=== PATIENT | male | born 1955 | race Caucasian/White ===

== ENCOUNTER 2020-07-24 10:15 | Observation (INO) | payer MEDICARE ==
[~2020-07-24] VITALS: Ht 170.2 cm; Wt 60.3 kg
[~2020-07-24 10:15] MED LIST: AMLODIPINE BESYL5 MG PO; ASPIR 8181 MG PO; ASPIRIN81 MG PO; BABY ASPIRIN81 MG PO; BUTALBITAL-ASA1 EACH PO; CLINDAMYCIN HC300 MG PO; CORDARONE200 MG PO; COUMADIN2 MG PO; COUMADIN2.5 MG PO; COUMADIN4 MG PO; COZAAR25 MG PO; DIAZEPAM10 MG PO; DIGOXIN125 MCG PO; DUONEB 0.5 MG-33 ML INH; ESGIC PLUS CAP1 EACH PO; HYDROCODON-ACE1 EACH PO; HYDROCODONE; JANTOVEN3 MG PO; LASIX20 MG PO; LEVAQUIN750 MG PO; LOSARTAN POTAS100 MG PO; LOSARTAN POTASS50 MG PO; METOPROLOL SUCC25 MG PO; METOPROLOL TART25 MG PO; MIRALAX17 GM PO; MUCOMYST NEB; MULTIVITAMIN PO; NEXIUM40 MG PO; NITROGLYCERIN0.4 MG SL; NORCO 5-325 TA1 EACH PO; NORCO 7.5-3251 EACH PO; OXYCODONE HCL20 M1 PO; POTASSIUM CHLO10 ME1 PO; RANEXA500 MG PO; RANITIDINE HCL300 MG PO; SEROQUEL100 MG PO; SINGULAIR10 MG PO; SOMA; SOMA350 MG PO; SOTALOL AF80 MG PO; STADOL IH; TEMAZEPAM15 MG PO; TEMAZEPAM30 MG PO; VALIUM; VALIUM10 MG PO; ZANTAC150 MG PO; ZANTAC300 MG PO; ZEBUTAL CAPSUL1 EACH PO; ZOMIG2.5 MG PO; [UNRECOGNIZED DRUG - OTHER]
[2020-07-24 10:39] LABS: HEMOGLOBIN 6.6 g/dL (14.0-18.0)
[2020-07-24 10:44] LABS: INR 1.4; PROTHROMBIN TIME 17.9 seconds (11.9-14.5)
[2020-07-24 10:45] LABS: PARTIAL THROMBOPLASTIN TIME 31.8 seconds (23.8-35.5)
[2020-07-24] MEDS ORDERED: SODIUM CHLORIDE 0.9% 250ML 250 ML IV SCH (11:30)
[2020-07-24 12:47] LABS: BASOPHILS % 0.3 % (0.0-1.0); EOSINOPHILS # (AUTO) 0.1 (0.0-0.4); EOSINOPHILS % 0.9 % (0.0-6.0); HEMATOCRIT 21.7 % (38.2-49.6); LYMPHOCYTES # (AUTO) 0.7 (1.0-3.2); LYMPHOCYTES % 8.8 % (18.0-39.1); MEAN CORPUSCULAR HEMOGLOBIN 24.6 pg (28-32); MEAN CORPUSCULAR VOLUME 82.2 fL (81-99); MONOCYTES # (AUTO) 0.6 (0.2-0.8); MONOCYTES % 8.6 % (4.4-11.3); NEUTROPHILS # (AUTO) 6.1 (2.1-6.9); NEUTROPHILS % 80.9 % (38.7-80.0); PLATELET COUNT 224 x10e3/uL (140-360); RED BLOOD COUNT 2.64 x10e6/uL (4.3-5.7); RED CELL DISTRIBUTION WIDTH 15.5 % (11.7-14.4); RETICULOCYTE % 3.1 % (0.8-2.2)
[2020-07-24 12:58] LABS: BODY FLUID COLOR YELLOW; BODY FLUID TYPE PLEURAL
[2020-07-24 12:59] LABS: BODY FLUID APPEARANCE SL.CLOUDY; RBC,BODY FLUID 27 cells/uL; WBC,BODY FLUID 66 cells/uL
[2020-07-24 13:05] LABS: ALBUMIN 3.3 g/dL (3.5-5.0); ANION GAP 16.1 mmol/L (8-16); CALCIUM 8.6 mg/dL (8.4-10.2); CREATININE, SERUM 3.57 mg/dL (0.72-1.25); POTASSIUM 5.1 mmol/L (3.5-5.1)
[2020-07-24 13:11] LABS: HEMOGLOBIN 6.5 g/dL (14.0-18.0)
[2020-07-24 13:18] LABS: LYMPHOCYTES,BODY FLUID 9 %; MONO/MACROPHG,BODY FLUID 67 %; NEUTROPHILS,BODY FLUID 24 %
[2020-07-24 13:24] LABS: FERRITIN 88.88 ng/mL (21.81-274.66)
[2020-07-24 13:35] VITALS: BP 100/58
[2020-07-24 13:42] VITALS: BP 100/58
[2020-07-24] MEDS ORDERED: SODIUM CHLORIDE 0.9% 250ML 250 ML ONE (14:40)
[2020-07-24] MEDS ORDERED: ACETAMINOPHEN 325 MG TAB PO PRN (15:15)
[2020-07-24 16:25] VITALS: BP 110/70
[2020-07-24 18:38] LABS: BILIRUBIN,URINE NEGATIVE (NEGATIVE); CLARITY,URINE SL CLOUDY (CLEAR); COLOR,URINE YELLOW (YELLOW); KETONES,URINE NEGATIVE (NEGATIVE); LEUKOCYTE ESTERASE ,URINE NEGATIVE (NEGATIVE); NITRITE,URINE NEGATIVE (NEGATIVE); PROTEIN,URINE DIPSTICK NEGATIVE (NEGATIVE); URINE UROBILINOGEN 0.2 mg/dL (0.2 - 1)
[2020-07-24 18:55] LABS: AMORPHOUS SEDIMENT,URINE FEW (FEW); BACTERIA,URINE MODERATE /HPF; EPITHELIAL CELLS,URINE FEW /LPF
[2020-07-24] MEDS ORDERED: HYDROCODONE/APAP 5MG-325MG TAB PO PRN (19:00)
[2020-07-24 20:00] VITALS: BP 113/60
[2020-07-24 21:00] VITALS: BP 113/60
[2020-07-24] MEDS ORDERED: ZOLPIDEM TARTRATE 5 MG TAB PO PRN (21:00)
[2020-07-24] MEDS: GUAIFENESIN 200 MG/10 ML UDC PO PRN (23:18)
[2020-07-25] VITALS: BP 113/69
[2020-07-25 04:00] VITALS: BP 106/65
[2020-07-25 05:01] LABS: BASOPHILS % 0.2 % (0.0-1.0); EOSINOPHILS # (AUTO) 0.1 (0.0-0.4); EOSINOPHILS % 0.4 % (0.0-6.0); HEMATOCRIT 25.6 % (38.2-49.6); HEMOGLOBIN 8.2 g/dL (14.0-18.0); LYMPHOCYTES # (AUTO) 0.7 (1.0-3.2); LYMPHOCYTES % 5.3 % (18.0-39.1); MEAN CORPUSCULAR HEMOGLOBIN 26.4 pg (28-32); MEAN CORPUSCULAR VOLUME 82.3 fL (81-99); MONOCYTES # (AUTO) 1.3 (0.2-0.8); NEUTROPHILS # (AUTO) 11.2 (2.1-6.9); NEUTROPHILS % 83.7 % (38.7-80.0); PLATELET COUNT 226 x10e3/uL (140-360); RED BLOOD COUNT 3.11 x10e6/uL (4.3-5.7); RED CELL DISTRIBUTION WIDTH 15.3 % (11.7-14.4)
[2020-07-25] MEDS: GUAIFENESIN 200 MG/10 ML UDC PO PRN (05:18)
[2020-07-25 05:31] LABS: ALBUMIN 3.4 g/dL (3.5-5.0); ANION GAP 15.1 mmol/L (8-16); CALCIUM 8.6 mg/dL (8.4-10.2); CREATININE, SERUM 2.59 mg/dL (0.72-1.25); POTASSIUM 5.1 mmol/L (3.5-5.1)
[2020-07-25 08:17] VITALS: BP 106/65
[2020-07-25 08:54] VITALS: BP 115/72
[2020-07-25] MEDS ORDERED: IRON SUCROSE 100 MG in SODIUM CHLORIDE 0.9% 100 ML 100 ML IV SCH (09:00)
[2020-07-25] MEDS ORDERED: ASPIRIN 81 MG CHEW TAB PO SCH (09:00)
[2020-07-25] MEDS ORDERED: MONTELUKAST SODIUM 10 MG TAB PO SCH (09:00)
[2020-07-25] MEDS ORDERED: LOSARTAN POTASSIUM 100 MG TAB PO SCH (09:00)
[2020-07-25 11:17] VITALS: BP 107/63
[2020-07-25 14:57] VITALS: BP 108/65
[2020-07-28 05:11] LABS: ENDOMYSIAL ANTIBODIES, IGA Negative (Negative)
== END 2020-07-25 17:15 | disposition home or self-care (01) ==
LOC: US 10:15 → MED/SURG 12:28
PROVIDERS: ADMIT Internal Medicine Critical Care Medicine; ATTEND Internal Medicine Critical Care Medicine
DX: D50.0 Iron deficiency anemia secondary to blood loss (chronic) (principal); N17.9 Acute kidney failure, unspecified; I11.0 Hypertensive heart disease with heart failure; I50.22 Chronic systolic (congestive) heart failure; J91.8 Pleural effusion in other conditions classified elsewhere; I48.91 Unspecified atrial fibrillation; Z85.038 Personal history of other malignant neoplasm of large intestine; Z85.820 Personal history of malignant melanoma of skin; Z88.5 Allergy status to narcotic agent; Z20.828 Contact with and (suspected) exposure to other viral communicable diseases
CPT/HCPCS: 32555; 36415 ×2; 36430; 71045; 76770; 80053 ×2; 81001; 82607; 82728; 82746; 82784; 83010; 83516; 83540; 83615; 84157; 84466; 84478; 85014; 85025 ×2; 85045 ×2; 85049; 85610; 85730; 86021; 86039; 86256; 86850; 86900; 86920; 87070; 87205; 88112; 88305; 89051; G0378 ×2; J1756; J7050; P9016; U0002

== ENCOUNTER → 2020-08-10 | Outpatient (CLI) | payer MEDICARE ==
[2020-08-10 10:42] LABS: BODY FLUID APPEARANCE SL.CLOUDY; BODY FLUID COLOR YELLOW; BODY FLUID TYPE PLEURAL; RBC,BODY FLUID 275 cells/uL; WBC,BODY FLUID 220 cells/uL
[2020-08-10 11:21] LABS: LYMPHOCYTES,BODY FLUID 44 %; MONO/MACROPHG,BODY FLUID 48 %; NEUTROPHILS,BODY FLUID 8 %
== END ==
LOC: US 07:37
PROVIDERS: ATTEND Internal Medicine Critical Care Medicine
DX: J90 Pleural effusion, not elsewhere classified (principal)
CPT/HCPCS: 32555; 36415; 71045; 83615; 84157; 84478; 88112; 88305; 89051

== ENCOUNTER → 2020-08-21 | Outpatient (CLI) | payer MEDICARE | LOC: US 12:06 | PROVIDERS: ATTEND Internal Medicine Critical Care Medicine | DX: J90 Pleural effusion, not elsewhere classified (principal) | CPT/HCPCS: 32555; 71045 ==

== ENCOUNTER → 2020-09-03 | Outpatient (CLI) | payer MEDICARE ==
[2020-09-03 07:47] LABS: HEMOGLOBIN 9.1 g/dL (14.0-18.0)
[2020-09-03 08:02] LABS: INR 1.09; PROTHROMBIN TIME 14.7 seconds (11.9-14.5)
[2020-09-03 08:03] LABS: PARTIAL THROMBOPLASTIN TIME 31.7 seconds (23.8-35.5)
[2020-09-03 09:27] LABS: CREATININE, SERUM 2.07 mg/dL (0.72-1.25)
[2020-09-03 12:25] LABS: BODY FLUID APPEARANCE CLOUDY; BODY FLUID COLOR YELLOW; BODY FLUID TYPE PLEURAL
[2020-09-03 12:26] LABS: RBC,BODY FLUID 87 cells/uL; WBC,BODY FLUID 149 cells/uL
[2020-09-03 12:41] LABS: LYMPHOCYTES,BODY FLUID 31 %; MONO/MACROPHG,BODY FLUID 62 %; NEUTROPHILS,BODY FLUID 7 %
== END ==
LOC: US 07:25
PROVIDERS: ATTEND Internal Medicine Critical Care Medicine
DX: J90 Pleural effusion, not elsewhere classified (principal)
CPT/HCPCS: 32555; 36415; 71250; 82565; 83615; 84157; 84311; 84478; 84520; 85014; 85049; 85610; 85730; 88112; 89051

== ENCOUNTER → 2020-09-17 | Outpatient (CLI) | payer MEDICARE | LOC: US 08:12 | PROVIDERS: ATTEND Internal Medicine Critical Care Medicine | DX: J98.4 Other disorders of lung (principal) | CPT/HCPCS: 32555; 71045; 78597; A9540 ==

== ENCOUNTER → 2020-09-28 | Outpatient (CLI) | payer MEDICARE ==
[2020-09-28 11:01] LABS: BODY FLUID APPEARANCE CLEAR; BODY FLUID COLOR YELLOW; BODY FLUID TYPE PLEURAL
[2020-09-28 11:02] LABS: RBC,BODY FLUID 19 cells/uL; WBC,BODY FLUID 69 cells/uL
[2020-09-28 11:50] LABS: LYMPHOCYTES,BODY FLUID 15 %; MONO/MACROPHG,BODY FLUID 80 %; NEUTROPHILS,BODY FLUID 5 %
== END ==
LOC: US 07:52
PROVIDERS: ATTEND Internal Medicine Critical Care Medicine
DX: J90 Pleural effusion, not elsewhere classified (principal)
CPT/HCPCS: 32555; 36415; 71045; 83615; 84157; 84311; 84478; 89051

== ENCOUNTER 2021-02-11 16:21 | Inpatient (IN) | payer MEDICARE, OTHER ==
[~2021-02-11] VITALS: Ht 172.7 cm; Wt 54.4 kg
[2021-02-11] MEDS ORDERED: ASPIRIN 81 MG CHEW TAB PO ONE (17:00)
[2021-02-11 17:06] LABS: BASOPHILS % 0.4 % (0.0-1.0); EOSINOPHILS % 0.3 % (0.0-6.0); HEMATOCRIT 34.3 % (38.2-49.6); HEMOGLOBIN 11.9 g/dL (14.0-18.0); LYMPHOCYTES # (AUTO) 0.3 (1.0-3.2); LYMPHOCYTES % 4.7 % (18.0-39.1); MEAN CORPUSCULAR HEMOGLOBIN 26.1 pg (28-32); MEAN CORPUSCULAR HGB CONC 34.7 g/dL (31-35); MEAN CORPUSCULAR VOLUME 75.2 fL (81-99); MONOCYTES # (AUTO) 0.8 (0.2-0.8); MONOCYTES % 11.9 % (4.4-11.3); NEUTROPHILS # (AUTO) 5.7 (2.1-6.9); PLATELET COUNT 158 x10e3/uL (140-360); RED BLOOD COUNT 4.56 x10e6/uL (4.3-5.7); RED CELL DISTRIBUTION WIDTH 17.7 % (11.7-14.4)
[2021-02-11 17:25] LABS: CREATINE KINASE MB 9.4 ng/mL (0-5.0)
[2021-02-11 17:26] LABS: ALBUMIN 4.3 g/dL (3.5-5.0); ALBUMIN/GLOBULIN RATIO 0.9 (0.8-2.0); ANION GAP 31.8 mmol/L (8-16); CALCIUM 9.1 mg/dL (8.4-10.2); CREATININE, SERUM 5.6 mg/dL (0.72-1.25)
[2021-02-11 17:30] LABS: POTASSIUM 2.8 mmol/L (3.5-5.1)
[2021-02-11] MEDS ORDERED: SODIUM CHLORIDE 0.9% 500ML 500 ML IV STA (17:46)
[2021-02-11 17:56] LABS: CLARITY,URINE CLEAR (CLEAR); COLOR,URINE YELLOW (YELLOW); KETONES,URINE NEGATIVE (NEGATIVE); LEUKOCYTE ESTERASE ,URINE NEGATIVE (NEGATIVE); NITRITE,URINE NEGATIVE (NEGATIVE); PROTEIN,URINE DIPSTICK NEGATIVE (NEGATIVE); URINE UROBILINOGEN 0.2 mg/dL (0.2 - 1)
[2021-02-11 17:57] LABS: BACTERIA,URINE FEW /HPF; EPITHELIAL CELLS,URINE FEW /LPF; RBC,URINE 0-5 /HPF (0-5); WBC,URINE (MAN) 0-5 /HPF (0-5)
[2021-02-11] MEDS ORDERED: POTASSIUM CHLORIDE 10MEQ/100ML 100 ML IV STA (17:58)
[2021-02-11 18:02] LABS: HYALINE CASTS 0-1 (0-1); TRANSITIONAL EPI CELLS,URINE FEW
[2021-02-11] MEDS ORDERED: POTASSIUM CHLORIDE 10MEQ EA PO STA (18:05)
[2021-02-11] MEDS ORDERED: ONDANSETRON HCL INJ 2MG/ML 2ML 2 MG/ML VIAL IV PRN (18:15)
[2021-02-11] MEDS ORDERED: MORPHINE SULFATE INJ 4 MG/ML INJ 1ML IV PRN (18:15)
[2021-02-11] MEDS ORDERED: HYDROMORPHONE 1MG/1ML INJ IV NR (19:33)
[2021-02-11 20:50] VITALS: BP 107/79
[2021-02-11 21:25] VITALS: BP 107/79
[2021-02-11] MEDS ORDERED: LASIX80 MG PO (21:56)
[2021-02-11] MEDS ORDERED: SPIRONOLACTONE25 MG PO (21:56)
[2021-02-11] MEDS ORDERED: ALLOPURINOL100 MG PO (21:57)
[2021-02-11] MEDS ORDERED: METOLAZONE5 MG PO (21:57)
[2021-02-11] MEDS ORDERED: CYCLOBENZAPRINE5 MG PO (21:57)
[2021-02-11] MEDS ORDERED: TEMAZEPAM15 MG PO (21:57)
[2021-02-11] MEDS ORDERED: NEXIUM40 MG PO (21:57)
[2021-02-11] MEDS ORDERED: QUETIAPINE FUM300 MG (21:57)
[2021-02-11] MEDS: ONDANSETRON HCL INJ 2MG/ML 2ML 2 MG/ML VIAL IV PRN (22:41)
[2021-02-11] MEDS: MORPHINE SULFATE INJ 4 MG/ML INJ 1ML IV PRN (22:41)
[2021-02-12] VITALS (8 sets, daily range): BP systolic 85–115; BP diastolic 57–80
[2021-02-12] MEDS: QUETIAPINE FUMARATE 100 MG TAB PO PRN ×2 (00:24→23:04)
[2021-02-12] MEDS: TEMAZEPAM 15 MG CAP PO PRN ×2 (00:24→23:00)
[2021-02-12 05:04] LABS: BASOPHILS % 0.3 % (0.0-1.0); EOSINOPHILS % 0.6 % (0.0-6.0); HEMATOCRIT 33.3 % (38.2-49.6); HEMOGLOBIN 11.5 g/dL (14.0-18.0); LYMPHOCYTES # (AUTO) 0.4 (1.0-3.2); LYMPHOCYTES % 6.2 % (18.0-39.1); MEAN CORPUSCULAR HGB CONC 34.5 g/dL (31-35); MEAN CORPUSCULAR VOLUME 75.2 fL (81-99); MONOCYTES # (AUTO) 1.1 (0.2-0.8); MONOCYTES % 15.9 % (4.4-11.3); NEUTROPHILS # (AUTO) 5.3 (2.1-6.9); NEUTROPHILS % 76.4 % (38.7-80.0); PLATELET COUNT 144 x10e3/uL (140-360); RED BLOOD COUNT 4.43 x10e6/uL (4.3-5.7); RED CELL DISTRIBUTION WIDTH 17.3 % (11.7-14.4)
[2021-02-12] MEDS: MORPHINE SULFATE INJ 4 MG/ML INJ 1ML IV PRN ×2 (05:20→21:20)
[2021-02-12] MEDS: ONDANSETRON HCL INJ 2MG/ML 2ML 2 MG/ML VIAL IV PRN ×2 (05:20→20:47)
[2021-02-12 05:35] LABS: ALBUMIN 4.1 g/dL (3.5-5.0); ANION GAP 28.5 mmol/L (8-16); CALCIUM 8.6 mg/dL (8.4-10.2); CREATININE, SERUM 5.5 mg/dL (0.72-1.25)
[2021-02-12 05:36] LABS: CREATINE KINASE MB 12.1 ng/mL (0-5.0)
[2021-02-12 05:37] LABS: POTASSIUM 2.5 mmol/L (3.5-5.1)
[2021-02-12] MEDS ORDERED: POTASSIUM CHLORIDE 20 MEQ TAB CR PO ONE ×2 (06:50→12:25)
[2021-02-12] MEDS ORDERED: NITROGLYCERIN 0.4 MG SUBL SL PRN (08:45)
[2021-02-12] MEDS ORDERED: METOPROLOL TARTRATE 25 MG TAB PO SCH (09:00)
[2021-02-12] MEDS: MONTELUKAST SODIUM 10 MG TAB PO SCH (09:00)
[2021-02-12] MEDS ORDERED: ALLOPURINOL 100 MG TAB PO SCH (09:00)
[2021-02-12] MEDS: PANTOPRAZOLE SOD 40 MG TABEC PO SCH (09:00)
[2021-02-12] MEDS: ALLOPURINOL 100 MG TAB PO SCH ×2 (10:15→21:15)
[2021-02-12] MEDS: METOPROLOL TARTRATE 25 MG TAB PO SCH ×2 (10:15→21:16)
[2021-02-12 10:34] LABS: CREATINE KINASE MB 10.8 ng/mL (0-5.0)
[2021-02-12] MEDS: SODIUM CHLORIDE 0.9% 1000ML 1,000 ML IV SCH ×3 (10:41→18:45)
[2021-02-13] VITALS (8 sets, daily range): BP systolic 82–92; BP diastolic 54–64
[2021-02-13] MEDS: SODIUM CHLORIDE 0.9% 1000ML 1,000 ML IV SCH ×3 (03:44→19:03)
[2021-02-13 05:27] LABS: BASOPHILS % 0.5 % (0.0-1.0); EOSINOPHILS # (AUTO) 0.1 (0.0-0.4); EOSINOPHILS % 1.2 % (0.0-6.0); HEMATOCRIT 31.6 % (38.2-49.6); HEMOGLOBIN 10.7 g/dL (14.0-18.0); LYMPHOCYTES # (AUTO) 0.4 (1.0-3.2); LYMPHOCYTES % 8.7 % (18.0-39.1); MEAN CORPUSCULAR HEMOGLOBIN 26.1 pg (28-32); MEAN CORPUSCULAR HGB CONC 33.9 g/dL (31-35); MEAN CORPUSCULAR VOLUME 77.1 fL (81-99); MONOCYTES # (AUTO) 0.8 (0.2-0.8); NEUTROPHILS % 70.9 % (38.7-80.0); PLATELET COUNT 125 x10e3/uL (140-360); RED CELL DISTRIBUTION WIDTH 17.7 % (11.7-14.4)
[2021-02-13 06:05] LABS: PHOSPHORUS 4.6 MG/DL (2.3-4.7)
[2021-02-13 06:25] LABS: THYROID STIMULATING HORMONE 1.172 uIU/mL (0.350-4.940)
[2021-02-13 06:38] LABS: ANION GAP 20.9 mmol/L (8-16); CALCIUM 8.4 mg/dL (8.4-10.2); CREATININE, SERUM 3.72 mg/dL (0.72-1.25)
[2021-02-13 06:44] LABS: POTASSIUM 2.9 mmol/L (3.5-5.1)
[2021-02-13] MEDS ORDERED: POTASSIUM CHLORIDE 20 MEQ TAB CR PO ONE (07:00)
[2021-02-13] MEDS: PANTOPRAZOLE SOD 40 MG TABEC PO SCH (07:30)
[2021-02-13] MEDS ORDERED: POTASSIUM CHLORIDE 10MEQ EA PO ONE (09:00)
[2021-02-13] MEDS: MONTELUKAST SODIUM 10 MG TAB PO SCH (10:00)
[2021-02-13] MEDS: METOPROLOL TARTRATE 25 MG TAB PO SCH ×2 (10:00→21:30)
[2021-02-13] MEDS: ALLOPURINOL 100 MG TAB PO SCH ×2 (10:00→21:33)
[2021-02-14] VITALS (8 sets, daily range): BP systolic 80–102; BP diastolic 52–71
[2021-02-14] MEDS: SODIUM CHLORIDE 0.9% 1000ML 1,000 ML IV SCH ×2 (02:30→09:45)
[2021-02-14 05:29] LABS: BASOPHILS % 0.5 % (0.0-1.0); EOSINOPHILS # (AUTO) 0.1 (0.0-0.4); EOSINOPHILS % 1.4 % (0.0-6.0); HEMATOCRIT 30.7 % (38.2-49.6); HEMOGLOBIN 9.9 g/dL (14.0-18.0); LYMPHOCYTES # (AUTO) 0.6 (1.0-3.2); LYMPHOCYTES % 14.5 % (18.0-39.1); MEAN CORPUSCULAR HEMOGLOBIN 25.9 pg (28-32); MEAN CORPUSCULAR HGB CONC 32.2 g/dL (31-35); MEAN CORPUSCULAR VOLUME 80.4 fL (81-99); MONOCYTES # (AUTO) 0.8 (0.2-0.8); MONOCYTES % 18.4 % (4.4-11.3); NEUTROPHILS # (AUTO) 2.8 (2.1-6.9); NEUTROPHILS % 64.5 % (38.7-80.0); PLATELET COUNT 125 x10e3/uL (140-360); RED BLOOD COUNT 3.82 x10e6/uL (4.3-5.7); RED CELL DISTRIBUTION WIDTH 18.2 % (11.7-14.4)
[2021-02-14 05:55] LABS: ANION GAP 16.5 mmol/L (8-16); CALCIUM 8.4 mg/dL (8.4-10.2); CREATININE, SERUM 2.57 mg/dL (0.72-1.25); POTASSIUM 3.5 mmol/L (3.5-5.1)
[2021-02-14] MEDS: PANTOPRAZOLE SOD 40 MG TABEC PO SCH (07:30)
[2021-02-14] MEDS: MONTELUKAST SODIUM 10 MG TAB PO SCH (09:00)
[2021-02-14] MEDS: ALLOPURINOL 100 MG TAB PO SCH ×2 (09:00→20:36)
[2021-02-14] MEDS: METOPROLOL TARTRATE 25 MG TAB PO SCH ×2 (09:00→20:37)
[2021-02-14] MEDS ORDERED: POTASSIUM CHLORIDE 20 MEQ TAB CR PO ONE (09:45)
[2021-02-14] MEDS ORDERED: DOCUSATE SODIUM 100 MG CAP ONE (10:09)
[2021-02-14] MEDS: DOCUSATE SODIUM LIQD 100 MG/10 ML UDC NG SCH ×2 (11:57→20:36)
[2021-02-14] MEDS: TEMAZEPAM 15 MG CAP PO PRN (22:52)
[2021-02-14] MEDS: QUETIAPINE FUMARATE 100 MG TAB PO PRN (22:55)
[2021-02-15] VITALS: BP 92/60
[2021-02-15 00:40] VITALS: BP 92/60
[2021-02-15] MEDS: SODIUM CHLORIDE 0.9% 1000ML 1,000 ML IV SCH ×2 (01:58→08:47)
[2021-02-15 04:00] VITALS: BP 82/56
[2021-02-15 05:29] LABS: ANION GAP 13.2 mmol/L (8-16); CALCIUM 7.8 mg/dL (8.4-10.2); CREATININE, SERUM 1.67 mg/dL (0.72-1.25); POTASSIUM 3.2 mmol/L (3.5-5.1)
[2021-02-15] MEDS: METOPROLOL TARTRATE 25 MG TAB PO SCH (07:59)
[2021-02-15 08:08] VITALS: BP 93/59
[2021-02-15] MEDS ORDERED: ONDANSETRON HCL 4 MG ORAL DISINTEGRATING TAB PO PRN (08:45)
[2021-02-15] MEDS: DOCUSATE SODIUM LIQD 100 MG/10 ML UDC NG SCH (09:00)
[2021-02-15] MEDS: PANTOPRAZOLE SOD 40 MG TABEC PO SCH (09:09)
[2021-02-15] MEDS: MONTELUKAST SODIUM 10 MG TAB PO SCH (09:09)
[2021-02-15] MEDS: ALLOPURINOL 100 MG TAB PO SCH (09:10)
[2021-02-15] MEDS ORDERED: MIDODRINE HCL 5 MG TABLET PO SCH (09:15)
[2021-02-15] MEDS ORDERED: POTASSIUM CHLORIDE 10MEQ EA PO ONE (09:30)
[2021-02-15 09:40] VITALS: BP 93/59
== END 2021-02-15 10:30 | disposition home or self-care (01) | DRG 682 ==
LOC: ER 17:30 → ERHOLD 18:09 → MED/SURG 21:01
PROVIDERS: ADMIT Internal Medicine; ATTEND Internal Medicine
DX: N17.0 Acute kidney failure with tubular necrosis (principal); I21.A1 Myocardial infarction type 2; I24.8 Other forms of acute ischemic heart disease; E87.1 Hypo-osmolality and hyponatremia; I13.0 Hypertensive heart and chronic kidney disease with heart failure and stage 1 through stage 4 chronic kidney disease, or unspecified chronic kidney disease; M62.82 Rhabdomyolysis; I50.32 Chronic diastolic (congestive) heart failure; I48.91 Unspecified atrial fibrillation; E87.6 Hypokalemia; N18.9 Chronic kidney disease, unspecified; I25.10 Atherosclerotic heart disease of native coronary artery without angina pectoris; R00.0 Tachycardia, unspecified; R53.1 Weakness; Z90.49 Acquired absence of other specified parts of digestive tract; Z89.412 Acquired absence of left great toe; Z88.5 Allergy status to narcotic agent; Z85.038 Personal history of other malignant neoplasm of large intestine; Z85.820 Personal history of malignant melanoma of skin; D63.1 Anemia in chronic kidney disease
CPT/HCPCS: 36415; 74176; 80048; 80053; 81001; 82550; 82553; 83540; 83735; 83880; 84100; 84443; 84466; 84484; 85025; 93005; 93306; 99284; J2270; J2405; J3480; J7030; J7040; U0002

== ENCOUNTER 2021-07-27 16:16 | Inpatient (IN) | payer MEDICARE, OTHER ==
[~2021-07-27] VITALS: Ht 172.7 cm; Wt 61.2 kg
[~2021-07-27 16:16] MED LIST changes: +ALLOPURINOL100 MG PO; +CYCLOBENZAPRINE5 MG PO; +LASIX80 MG PO; +METOLAZONE5 MG PO; +QUETIAPINE FUM300 MG; +SPIRONOLACTONE25 MG PO
[2021-07-27 17:20] LABS: BASOPHILS % 0.2 % (0.0-1.0); EOSINOPHILS # (AUTO) 0.2 (0.0-0.4); HEMATOCRIT 29.8 % (38.2-49.6); HEMOGLOBIN 9.3 g/dL (14.0-18.0); LYMPHOCYTES # (AUTO) 0.4 (1.0-3.2); MEAN CORPUSCULAR HGB CONC 31.2 g/dL (31-35); MEAN CORPUSCULAR VOLUME 86.4 fL (81-99); MONOCYTES # (AUTO) 0.6 (0.2-0.8); MONOCYTES % 6.7 % (4.4-11.3); NEUTROPHILS % 85.5 % (38.7-80.0); PLATELET COUNT 170 x10e3/uL (140-360); RED BLOOD COUNT 3.45 x10e6/uL (4.3-5.7); RED CELL DISTRIBUTION WIDTH 16.1 % (11.7-14.4)
[2021-07-27 17:33] LABS: CLARITY,URINE CLEAR (CLEAR); COLOR,URINE YELLOW (YELLOW); KETONES,URINE NEGATIVE (NEGATIVE); LEUKOCYTE ESTERASE ,URINE NEGATIVE (NEGATIVE); NITRITE,URINE NEGATIVE (NEGATIVE); PROTEIN,URINE DIPSTICK TRACE (NEGATIVE); URINE UROBILINOGEN 0.2 mg/dL (0.2 - 1)
[2021-07-27 17:39] LABS: ALBUMIN 4.1 g/dL (3.5-5.0); ALBUMIN/GLOBULIN RATIO 1.1 (0.8-2.0); BACTERIA,URINE FEW /HPF; CALCIUM 7.6 mg/dL (8.4-10.2); CREATININE, SERUM 6.77 mg/dL (0.72-1.25); EPITHELIAL CELLS,URINE FEW /LPF; RBC,URINE 0-5 /HPF (0-5); TRANSITIONAL EPI CELLS,URINE FEW
[2021-07-27 17:46] LABS: CREATINE KINASE MB 11.2 ng/mL (0-5.0)
[2021-07-27] MEDS ORDERED: ALBUTEROL SULF 0.083% NEB SOLN 3 ML NEB NEB STA (17:55)
[2021-07-27] MEDS ORDERED: SODIUM BICARBONATE 8.4% INJ 50 ML SYR IV STA (17:55)
[2021-07-27] MEDS ORDERED: DEXTROSE 50% SYRINGE 50 ML IV ONE (18:00)
[2021-07-27] MEDS ORDERED: CALCIUM GLUCONATE 10% INJ 4.65 MEQ in SODIUM CHLORIDE 0.9% 50ML 50 ML IV ONE (18:00)
[2021-07-27] MEDS ORDERED: INSULIN REGULAR, HUMAN 100 UNIT/1 ML IV ONE (18:00)
[2021-07-27] MEDS ORDERED: CEFTRIAXONE 1 GM in SODIUM CHLORIDE 0.9% 50ML 50 ML IV SCH (18:15)
[2021-07-27] MEDS ORDERED: SOD POLYSTYRENE SULFONATE SUSP 15 GM/60 ML BTL PO ONE (18:30)
[2021-07-27] MEDS: CEFTRIAXONE 1 GM in SODIUM CHLORIDE 0.9% 50ML 50 ML IV SCH (18:32)
[2021-07-27] MEDS ORDERED: IBUPROFEN 600 MG TAB PO STA (19:37)
[2021-07-27] MEDS ORDERED: IBUPROFEN 600 MG TAB ONE (19:52)
[2021-07-27] MEDS: SODIUM CHLORIDE 0.9% 1000ML 1,000 ML IV SCH (20:00)
[2021-07-27 22:06] LABS: ANION GAP 28.9 mmol/L (8-16); CALCIUM 8.4 mg/dL (8.4-10.2); CREATININE, SERUM 6.51 mg/dL (0.72-1.25); POTASSIUM 4.9 mmol/L (3.5-5.1)
[2021-07-27 23:46] VITALS: BP 115/58
[2021-07-27 23:47] VITALS: BP 115/58
[2021-07-27 23:58] VITALS: BP 115/58
[2021-07-28] VITALS (8 sets, daily range): BP systolic 96–131; BP diastolic 51–81
[2021-07-28 05:31] LABS: ANION GAP 24.2 mmol/L (8-16); CALCIUM 7.7 mg/dL (8.4-10.2); CREATININE, SERUM 5.64 mg/dL (0.72-1.25); POTASSIUM 4.2 mmol/L (3.5-5.1)
[2021-07-28] MEDS: SODIUM CHLORIDE 0.9% 1000ML 1,000 ML IV SCH (08:06)
[2021-07-28] MEDS ORDERED: NITROGLYCERIN 0.4 MG SUBL SL PRN (08:30)
[2021-07-28] MEDS: ALLOPURINOL 100 MG TAB PO SCH ×2 (09:07→16:06)
[2021-07-28] MEDS: PANTOPRAZOLE SOD 40 MG TABEC PO SCH (09:07)
[2021-07-28] MEDS: FAMOTIDINE 20 MG TAB PO SCH ×2 (12:49→12:53)
[2021-07-28] MEDS ORDERED: LORAZEPAM INJ 2 MG/ML VIAL IV ONE (14:25)
[2021-07-28] MEDS ORDERED: MIDODRINE HCL2.5 MG PO (15:00)
[2021-07-28] MEDS: CEFTRIAXONE 1 GM in SODIUM CHLORIDE 0.9% 50ML 50 ML IV SCH (20:49)
[2021-07-28] MEDS: MONTELUKAST SODIUM 10 MG TAB PO SCH (20:49)
[2021-07-29] VITALS (9 sets, daily range): BP systolic 90–122; BP diastolic 45–65
[2021-07-29] MEDS: TEMAZEPAM 15 MG CAP PO PRN ×2 (00:25→22:36)
[2021-07-29 07:40] LABS: BASOPHILS % 0.6 % (0.0-1.0); EOSINOPHILS # (AUTO) 0.2 (0.0-0.4); EOSINOPHILS % 4.1 % (0.0-6.0); HEMATOCRIT 25.4 % (38.2-49.6); HEMOGLOBIN 8.1 g/dL (14.0-18.0); LYMPHOCYTES # (AUTO) 0.6 (1.0-3.2); LYMPHOCYTES % 12.2 % (18.0-39.1); MEAN CORPUSCULAR HEMOGLOBIN 27.1 pg (28-32); MEAN CORPUSCULAR HGB CONC 31.9 g/dL (31-35); MEAN CORPUSCULAR VOLUME 84.9 fL (81-99); MONOCYTES # (AUTO) 0.5 (0.2-0.8); MONOCYTES % 9.8 % (4.4-11.3); NEUTROPHILS # (AUTO) 3.8 (2.1-6.9); NEUTROPHILS % 72.9 % (38.7-80.0); PLATELET COUNT 135 x10e3/uL (140-360); RED BLOOD COUNT 2.99 x10e6/uL (4.3-5.7); RED CELL DISTRIBUTION WIDTH 15.8 % (11.7-14.4)
[2021-07-29 07:54] LABS: ANION GAP 18.3 mmol/L (8-16); CALCIUM 7.8 mg/dL (8.4-10.2); CREATININE, SERUM 3.96 mg/dL (0.72-1.25); POTASSIUM 3.3 mmol/L (3.5-5.1)
[2021-07-29] MEDS: ALLOPURINOL 100 MG TAB PO SCH ×2 (08:37→16:25)
[2021-07-29] MEDS: FAMOTIDINE 20 MG TAB PO SCH ×2 (08:37→16:25)
[2021-07-29] MEDS: PANTOPRAZOLE SOD 40 MG TABEC PO SCH (08:37)
[2021-07-29] MEDS ORDERED: MAGNESIUM SULFATE 2GM/50ML IV ONE (10:00)
[2021-07-29] MEDS: DEXTROSE 5%/0.45% SOD CHL 1,000 ML IV SCH ×2 (10:25→22:36)
[2021-07-29] MEDS ORDERED: MAGNESIUM SULFATE 2GM/50ML 50 ML IV ONE (10:30)
[2021-07-29] MEDS ORDERED: POTASSIUM CHLORIDE 10MEQ EA PO ONE (10:30)
[2021-07-29] MEDS: ACETAMINOPHEN 325 MG TAB PO PRN (11:33)
[2021-07-29] MEDS ORDERED: TRAMADOL HCL 50 MG TAB PO PRN (12:30)
[2021-07-29] MEDS: CALCIUM CARBONATE 500 MG CHEWABLE TABS PO SCH ×2 (14:42→20:30)
[2021-07-29] MEDS: AMIODARONE HCL 200 MG TAB PO SCH (16:00)
[2021-07-29] MEDS: METOPROLOL TARTRATE 25 MG TAB PO SCH (16:01)
[2021-07-29] MEDS: MONTELUKAST SODIUM 10 MG TAB PO SCH (20:30)
[2021-07-29] MEDS: CEFTRIAXONE 1 GM in SODIUM CHLORIDE 0.9% 50ML 50 ML IV SCH (20:30)
[2021-07-29] MEDS ORDERED: CEFTRIAXONE 1 GM VIAL ONE (20:31)
[2021-07-30] MEDS: ACETAMINOPHEN 325 MG TAB PO PRN ×2 (02:43→11:35)
[2021-07-30 04:27] VITALS: BP_SYST 106; BP_SYST 99; BP_DIAS 49; BP_DIAS 52
[2021-07-30 04:57] LABS: BASOPHILS % 0.4 % (0.0-1.0); EOSINOPHILS # (AUTO) 0.2 (0.0-0.4); EOSINOPHILS % 3.3 % (0.0-6.0); HEMOGLOBIN 8.2 g/dL (14.0-18.0); LYMPHOCYTES # (AUTO) 0.5 (1.0-3.2); LYMPHOCYTES % 7.4 % (18.0-39.1); MEAN CORPUSCULAR HGB CONC 32.8 g/dL (31-35); MEAN CORPUSCULAR VOLUME 85.3 fL (81-99); MONOCYTES # (AUTO) 0.5 (0.2-0.8); MONOCYTES % 6.7 % (4.4-11.3); NEUTROPHILS # (AUTO) 5.6 (2.1-6.9); NEUTROPHILS % 81.5 % (38.7-80.0); PLATELET COUNT 141 x10e3/uL (140-360); RED BLOOD COUNT 2.93 x10e6/uL (4.3-5.7); RED CELL DISTRIBUTION WIDTH 15.5 % (11.7-14.4)
[2021-07-30 05:16] LABS: ANION GAP 15.4 mmol/L (8-16); CALCIUM 8.1 mg/dL (8.4-10.2); CREATININE, SERUM 2.93 mg/dL (0.72-1.25); POTASSIUM 3.4 mmol/L (3.5-5.1)
[2021-07-30 05:46] LABS: MAGNESIUM 1.7 MG/DL (1.3-2.1); PHOSPHORUS 4.3 MG/DL (2.3-4.7)
[2021-07-30 06:02] LABS: CHOL/HDL RATIO 3.6 (3.9-4.7)
[2021-07-30 06:12] LABS: THYROID STIMULATING HORMONE 1.602 uIU/mL (0.350-4.940)
[2021-07-30] MEDS: PANTOPRAZOLE SOD 40 MG TABEC PO SCH (07:48)
[2021-07-30] MEDS: CALCIUM CARBONATE 500 MG CHEWABLE TABS PO SCH (07:48)
[2021-07-30] MEDS: METOPROLOL TARTRATE 25 MG TAB PO SCH (07:48)
[2021-07-30] MEDS: FAMOTIDINE 20 MG TAB PO SCH (07:48)
[2021-07-30] MEDS: AMIODARONE HCL 200 MG TAB PO SCH (07:49)
[2021-07-30] MEDS: ALLOPURINOL 100 MG TAB PO SCH (07:49)
[2021-07-30 08:24] VITALS: BP 116/41
[2021-07-30] MEDS ORDERED: DEXTROSE 5%/0.45% SOD CHL 1,000 ML IV SCH (08:30)
[2021-07-30] MEDS ORDERED: POTASSIUM CHLORIDE 20 MEQ TAB CR PO NR (09:30)
[2021-07-30 10:19] VITALS: BP 116/41
[2021-07-30 10:20] VITALS: BP 116/41
[2021-07-30 12:38] VITALS: BP 111/53
== END 2021-07-30 15:00 | disposition home or self-care (01) | DRG 693 ==
LOC: ER 16:29 → ERHOLD 19:00 → IMCU 23:44
PROVIDERS: ADMIT Internal Medicine; ATTEND Internal Medicine
DX: N13.8 Other obstructive and reflux uropathy (principal); N17.0 Acute kidney failure with tubular necrosis; N39.0 Urinary tract infection, site not specified; E87.2 Acidosis; I47.1 Supraventricular tachycardia; N40.1 Benign prostatic hyperplasia with lower urinary tract symptoms; E87.5 Hyperkalemia; D64.9 Anemia, unspecified; Z88.5 Allergy status to narcotic agent; I50.9 Heart failure, unspecified; E78.5 Hyperlipidemia, unspecified; R33.9 Retention of urine, unspecified; I48.0 Paroxysmal atrial fibrillation; E87.6 Hypokalemia; E83.51 Hypocalcemia; Z95.0 Presence of cardiac pacemaker
CPT/HCPCS: 36415; 71045; 80048; 80053; 80061; 81001; 82550; 82553; 83036; 83735; 84100; 84443; 84484; 85025; 93005; 93306; 94640; 94799; 99284; J0456; J0610; J0696; J1817; J2060; J3475; J7030; J7050; J7799; U0002

== ENCOUNTER 2021-11-26 18:07 | Inpatient (IN) | payer MEDICARE ==
[~2021-11-26] VITALS: Ht 170.2 cm; Wt 58.2 kg
[~2021-11-26 18:07] MED LIST changes: +MIDODRINE HCL2.5 MG PO
[2021-11-26] MEDS ORDERED: ONDANSETRON HCL INJ 2MG/ML 2ML 2 MG/ML VIAL IV STA (18:17)
[2021-11-26] MEDS ORDERED: LACTATED RINGER'S 1,000 ML INJ STA (18:17)
[2021-11-26 18:50] LABS: BASOPHILS % 0.5 % (0.0-1.0); EOSINOPHILS % 0.4 % (0.0-6.0); HEMATOCRIT 32.9 % (38.2-49.6); HEMOGLOBIN 10.3 g/dL (14.0-18.0); LYMPHOCYTES # (AUTO) 0.4 (1.0-3.2); LYMPHOCYTES % 5.5 % (18.0-39.1); MEAN CORPUSCULAR HEMOGLOBIN 25.8 pg (28-32); MEAN CORPUSCULAR HGB CONC 31.3 g/dL (31-35); MEAN CORPUSCULAR VOLUME 82.5 fL (81-99); MONOCYTES # (AUTO) 0.8 (0.2-0.8); MONOCYTES % 9.7 % (4.4-11.3); NEUTROPHILS # (AUTO) 6.5 (2.1-6.9); PLATELET COUNT 295 x10e3/uL (140-360); RED BLOOD COUNT 3.99 x10e6/uL (4.3-5.7); RED CELL DISTRIBUTION WIDTH 17.2 % (11.7-14.4)
[2021-11-26 19:25] LABS: ALBUMIN 2.7 g/dL (3.5-5.0); ALBUMIN/GLOBULIN RATIO 0.7 (0.8-2.0); ANION GAP 14.8 mmol/L (8-16); CALCIUM 9.3 mg/dL (8.4-10.2); CREATININE, SERUM 3.1 mg/dL (0.72-1.25)
[2021-11-26 19:27] LABS: POTASSIUM 5.8 mmol/L (3.5-5.1)
[2021-11-26] MEDS ORDERED: METOCLOPRAMIDE HCL 10 MG/2ML VIAL IV ONE (19:45)
[2021-11-26] MEDS ORDERED: SODIUM CHLORIDE 0.9% 500ML 500 ML IV ONE (20:00)
[2021-11-26] MEDS ORDERED: ONDANSETRON HCL INJ 2MG/ML 2ML 2 MG/ML VIAL IV PRN (20:00)
[2021-11-26] MEDS ORDERED: FUROSEMIDE INJ 10 MG/ML 4 ML VIAL IV ONE (20:00)
[2021-11-26] MEDS ORDERED: SODIUM CHLORIDE 0.9% 500ML 500 ML ONE (20:07)
[2021-11-26] MEDS ORDERED: SODIUM CHLORIDE 0.9% 1000ML 1,000 ML ONE (20:11)
[2021-11-26] MEDS: SODIUM CHLORIDE 0.9% 1000ML 1,000 ML IV SCH (20:28)
[2021-11-26 20:33] LABS: CREATINE KINASE 32 IU/L (30-200)
[2021-11-26 23:00] VITALS: BP 102/59
[2021-11-26 23:13] LABS: CLARITY,URINE CLOUDY (CLEAR); COLOR,URINE AMBER (YELLOW); KETONES,URINE NEGATIVE (NEGATIVE); LEUKOCYTE ESTERASE ,URINE NEGATIVE (NEGATIVE); NITRITE,URINE NEGATIVE (NEGATIVE); PROTEIN,URINE DIPSTICK NEGATIVE (NEGATIVE); URINE UROBILINOGEN 0.2 mg/dL (0.2 - 1)
[2021-11-26 23:19] LABS: BACTERIA,URINE MANY /HPF; EPITHELIAL CELLS,URINE FEW /LPF; HYALINE CASTS >15 (0-1); RBC,URINE 0-5 /HPF (0-5); TRANSITIONAL EPI CELLS,URINE FEW
[2021-11-27] VITALS (8 sets, daily range): BP systolic 90–109; BP diastolic 50–68
[2021-11-27] MEDS: SODIUM CHLORIDE 0.9% 1000ML 1,000 ML IV SCH ×4 (02:40→21:31)
[2021-11-27 07:34] LABS: ANION GAP 16.1 mmol/L (8-16); CALCIUM 8.1 mg/dL (8.4-10.2); CREATININE, SERUM 2.84 mg/dL (0.72-1.25); POTASSIUM 5.1 mmol/L (3.5-5.1)
[2021-11-27] MEDS ORDERED: HYDRALAZINE HCL 20 MG/ML VIAL IV PRN (13:00)
[2021-11-27] MEDS ORDERED: POLYETHYLENE GLYCOL 3350 17 GM PACK PO PRN (13:00)
[2021-11-27] MEDS ORDERED: FAMOTIDINE 20 MG TAB PO SCH (13:00)
[2021-11-27] MEDS ORDERED: ACETAMINOPHEN 325 MG TAB PO PRN (13:00)
[2021-11-27] MEDS ORDERED: METOPROLOL TARTRATE 25 MG TAB PO PRN (14:00)
[2021-11-27] MEDS ORDERED: ACETAMIN/BUTALBITAL/CAFFEINE TAB PO PRN (14:00)
[2021-11-27] MEDS ORDERED: NITROGLYCERIN 0.4 MG SUBL SL PRN (14:00)
[2021-11-27] MEDS ORDERED: MIDODRINE 2.5 MG TAB PO PRN ×2 (14:00→14:15)
[2021-11-27] MEDS: CYCLOBENZAPRINE HCL 10 MG TAB PO SCH ×2 (15:13→21:30)
[2021-11-27] MEDS ORDERED: DOCUSATE SODIUM 100 MG CAP PO SCH (17:00)
[2021-11-27] MEDS ORDERED: MONTELUKAST SODIUM 10 MG TAB PO SCH (18:00)
[2021-11-27] MEDS ORDERED: TEMAZEPAM 15 MG CAP PO SCH (21:00)
[2021-11-27] MEDS ORDERED: QUETIAPINE FUMARATE 100 MG TAB PO SCH (21:00)
[2021-11-28] VITALS: BP 93/57
[2021-11-28 04:00] VITALS: BP 86/49
[2021-11-28] MEDS ORDERED: SODIUM CHLORIDE 0.9% 1000ML 500 ML IV ONE (04:15)
[2021-11-28] MEDS: SODIUM CHLORIDE 0.9% 1000ML 1,000 ML IV SCH (05:35)
[2021-11-28 05:40] VITALS: BP 109/59
[2021-11-28] MEDS ORDERED: PANTOPRAZOLE SOD 40 MG TABEC PO SCH (07:30)
== END 2021-11-28 07:38 | disposition left against medical advice (07) | DRG 683 ==
LOC: ER 18:18 → ERHOLD 20:11 → MED/SURG3 22:58
PROVIDERS: ADMIT Internal Medicine; ATTEND Internal Medicine
DX: N17.9 Acute kidney failure, unspecified (principal); I13.0 Hypertensive heart and chronic kidney disease with heart failure and stage 1 through stage 4 chronic kidney disease, or unspecified chronic kidney disease; E87.1 Hypo-osmolality and hyponatremia; E87.2 Acidosis; E87.5 Hyperkalemia; N18.4 Chronic kidney disease, stage 4 (severe); R74.01 Elevation of levels of liver transaminase levels; Z95.810 Presence of automatic (implantable) cardiac defibrillator; E86.0 Dehydration; R33.9 Retention of urine, unspecified; Z20.822 Contact with and (suspected) exposure to COVID-19; C43.9 Malignant melanoma of skin, unspecified; E03.9 Hypothyroidism, unspecified; K21.9 Gastro-esophageal reflux disease without esophagitis; E83.39 Other disorders of phosphorus metabolism; R63.4 Abnormal weight loss; Z68.20 Body mass index [BMI] 20.0-20.9, adult; I50.9 Heart failure, unspecified; Z88.5 Allergy status to narcotic agent; Z95.818 Presence of other cardiac implants and grafts
CPT/HCPCS: 36415; 80048; 80053; 81001; 82550; 82553; 83690; 84133; 84484; 85025; 93005; 94799; 96361; 99284; J1940; J2405; J2765; J7030; J7040; J7121; U0002